=== PATIENT | male | born 1940 | race Caucasian/White ===

== ENCOUNTER 2016-12-08 10:44 | Emergency (ER) | payer MEDICARE ==
[2016-12-08] MEDS ORDERED: MECLIZINE HCL 25 MG TABLET ONE (12:43)
[2016-12-08 12:51] LABS: ABSOLUTE NEUTROPHIL COUNT 5.2 K/mm3 (1.8-7.7); BASO # 0.1 K/mm3 (0.0-0.2); BASO % 0.9 % (0.2-1.0); EOS # 0.9 (0.0-0.5); EOS % 6.6 % (0.9-2.9); HEMATOCRIT 52.7 % (32.0-52.0); HEMOGLOBIN 17.3 gm/l (14.0-18.0); IMM NEUT # 0.1 K/mm3 (0-0.2); IMM NEUT% 0.4 % (0-1); LYMPH # 6.3 (1.0-4.8); LYMPH % 47.1 % (15-45); MEAN CELL VOLUME 92.8 fl (80.0-94.0); MEAN CORPUSCULAR HEMOGLOBIN 30.5 pg (27.0-31.0); MEAN CORPUSCULAR HGB CONC 32.8 g/dl (33.0-37.0); MONO # 0.8 (0.0-0.8); PLATELET COUNT 267 K/mm3 (130-400); RED CELL DISTRIBUTION WIDTH 13.4 % (11.5-14.5)
[2016-12-08 13:03] LABS: ALB/GLOB RATIO 1.3 (>1.0); ALBUMIN 4.7 gm/dL (3.5-5.7); CALCIUM 9.6 mg/dL (8.6-10.3)
[2016-12-08 13:04] LABS: TROPONIN I < 0.01 ng/ml (0.0-0.06)
[2016-12-08 13:07] LABS: CKMB ISOENZYME 2.3 ng/ml (0.6-6.3)
[2016-12-08 13:10] LABS: URINE BILIRUBIN NEGATIVE (NEGATIVE); URINE BLOOD NEGATIVE (NEGATIVE); URINE GLUCOSE (UA) NEGATIVE (NEGATIVE); URINE LEUKOCYTE ESTERASE NEGATIVE (NEGATIVE); URINE NITRITE NEGATIVE (NEGATIVE); URINE PROTEIN NEGATIVE (NEGATIVE); URINE UROBILINOGEN NORMAL (0-1 mg/dl)
[2016-12-08 13:17] LABS: URINE APPEARANCE CLEAR; URINE COLOR YELLOW
== END 2016-12-08 14:19 | disposition home or self-care (01) ==
LOC: ED 10:44
DX: R42 Dizziness and giddiness (principal); I10 Essential (primary) hypertension; E11.9 Type 2 diabetes mellitus without complications; Z79.84 Long term (current) use of oral hypoglycemic drugs
CPT/HCPCS: 85025; 82550; 82553; 80053; 81003; 84484; 99284; 82962; 93005; 99283; A9270